=== PATIENT | female | born 1980 | race Hispanic/Latino ===

== ENCOUNTER 2019-07-21 01:24 | Observation (INO) ==
[2019-07-21] MEDS ORDERED: NS 1,000 ML IV ONE ×2 (01:42)
[2019-07-21] MEDS ORDERED: NS 250 ML IV ONE (01:42)
[2019-07-21] MEDS ORDERED: BENADRYL IV ONE (01:42)
[2019-07-21] MEDS ORDERED: ZOFRAN IV ONE ×2 (01:42→03:08)
[2019-07-21] MEDS ORDERED: REGLAN IV ONE (01:42)
[2019-07-21 02:11] LABS: BASO# 0.02 X1000 (0.0-0.2); BASO% 0.1 % (0.0-0.8); EOS# 0.18 X1000 (0.0-0.7); EOS% 1.1 % (0.0-10.0); HEMATOCRIT 38.9 % (37.0-47.0); HEMOGLOBIN 13.2 g/dL (12.0-16.0); IMM GRAN# 0.03 X1000 (0.0-0.04); IMM GRAN% 0.2 % (0.0-0.5); LYMPH# 0.94 X1000 (1.2-3.4); LYMPH% 5.8 % (20.5-51.1); MCH 29.4 PG (27-31); MCHC 33.9 g/dL (33-37); MCV 86.6 FL (81-99); MONO# 0.72 X1000 (0.11-0.59); MONO% 4.5 % (1.7-9.3); MPV 9.5 FL (7.4-10.4); NEUT# 14.25 X1000 (1.4-6.5); NEUT% 88.3 % (42.2-75.2); PLT 286 X1000 (130-400); RBC 4.49 XMIL (4.2-5.4); RDW 12.8 % (11.5-14.5); WBC 16.14 X1000 (4.8-10.8)
--- NOTE | 2019-07-21 02:18 | PROVIDER DOCUMENTATION ---
HPI-Abdominal Pain/GI Problem - General Chief Complaint: Abdominal Pain Stated Complaint: ABD/BACK PAIN Time Seen by Provider: 07/21/19 01:29 Source: patient, family (, who is Kong Fried, hospitalist here at bedside) Allergies/Adverse Reactions: Patient Allergies Allergy/AdvReac Type Severity Reaction Status Date / Time No Known Allergies Allergy Verified 07/21/19 01:43 Home Medications: Home Medication List Medication Instructions Recorded Confirmed Last Taken Type Levothyroxine [Synthroid] 100 microgm PO DAILY 07/21/19 07/21/19 Unknown History - History of Present Illness-ABD Nature of Presenting Problems: Acute onset of severe, sharp, stabbing epigastric pain radiating to back, with nausea intermittent since 2300 this evening. Has had similar episodes in the past, seen by Dr. Murray with negative MRCP after cholecystectomy. Told if symptoms returned, to come to ER for labs and CT scan or MRI. No diarrhea, vomiting, fever, chills. Patient has IUD, and occasionally has vaginal bleeding, doesn't think she can be . Only medicine takes routinely is thyroid medicine. Non-smoker, denies alcohol and drugs. Abdominal Pain Onset Location: reports: epigastric Pain Radiation: reports: back Quality of Pain: reports: sharp, stabbing Severity in ED: reports: severe Onset/Duration: reports: abrupt, 1-3 hours ago Timing: reports: still present, intermittent, changing over time (waxing and waning) Activities at Onset: reports: light activity Exposure to sick contacts?: No Modifying Factors: improves with: nothing Associated Symptoms: reports: back/neck pain, malaise, nausea, weakness Last BM: 24 hours ago Dark Stools Present?: reports: none noticed Rectal Bleeding: reports: none Rectal Pain: reports: none Emesis Description: reports: none Bruising or Bleeding Gums?: No Similar Symptoms Previously?: Yes (on occasion) Recently seen or treated by another doctor?: No Review of Systems - Adult - REVIEW OF SYSTEMS - ADULT Constitutional: reports: no symptoms reported Eyes: reports: no symptoms reported Ears, Nose, Mouth & Throat: reports: no symptoms reported Cardiovascular: reports: no symptoms reported Respiratory: reports: no symptoms reported Gastrointestinal: reports: no symptoms reported Genitourinary: reports: no symptoms reported Musculoskeletal: reports: no symptoms reported Integumentary: reports: no symptoms reported Neurological: reports: no symptoms reported Psychiatric: reports: no symptoms reported Endocrine: reports: no symptoms reported Hematologic/Lymphatic: reports: no symptoms reported Allergic/Immunologic: reports: no symptoms reported All Other Systems: Reviewed and Negative Past History - Adult - PAST MEDICAL HISTORY-ADULT Review of Records: reports: Old Records Reviewed, Nursing Assessment Review, Medications Reviewed, Social history reviewed & non-contributory. Major Childhood Illnesses: reports: denies history Cardiovascular: reports: denies history Respiratory: reports: denies history Gastrointestinal: reports: cholelithiasis Obstetrical/Gynecological: reports: ovarian cysts (PCOS) Genitourinary: reports: denies history Musculoskeletal: reports: denies history Neurological: reports: denies history Endocrine/Immune: reports: thyroid disorder Other Conditions: reports: denies history - PRIOR SURGERIES/PROCEDURES Surgical/Procedure History: reports: cholecystectomy - IMMUNIZATION STATUS Childhood Immunizations: UTD Flu Vaccine: UTD - FAMILY HISTORY Family History: reviewed, not pertinent - SOCIAL HISTORY Smoking: non-smoker Substance Use: none/never Alcohol Use Frequency: rarely Living Situation: family Physical Exam-General - PHYSICAL EXAM-ADULT Initial Vital Signs Reviewed: Yes (Tachycardic, tachypneic, hypotensive) - CONSTITUTIONAL General Appearance: alert, mild distress, other (ill appearing, pale) - EYES Eyes: PERRL/EOMI, pale conjunctivae. negative: pink conjunctivae - HEAD, EARS, NOSE, MOUTH & THROAT HENMT: normocephalic/atraumatic, pharynx normal, other (pale, dry mucosa). negative: moist mucous membranes, normal ENT inspection - NECK Neck: full range of motion, supple, normal inspection - RESPIRATORY Respiratory: chest non-tender, lungs clear, normal breath sounds, no pleuratic chest pain, no respiratory distress, no accessory muscle use - CARDIOVASCULAR Cardiovascular: normal peripheral pulses, regular rate, rhythm, no edema, no gallop, no JVD, no murmur, tachycardia - GASTROINTESTINAL (ABDOMEN) Abdominal Exam: non tender, soft, no organomegaly, abnormal bowel sounds (hyperactive) - LYMPHATIC Lymphatic: no adenopathy - MUSCULOSKELETAL Back Exam: normal inspection, no CVA tenderness, no vertebral tenderness. 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, grossly normal, no motor/sensory deficits - PSYCHIATRIC Psych/Mental Status: normal mood/affect, normal thought content, normal thought process, oriented x 3 Progress - PLAN OF CARE/RESULTS Progress/Plan/Lab Results: Vital Signs - 8 hr 07/21/19 01:30 Temperature 97.5 F L Pulse Rate 114 H Respiratory Rate 26 H Blood Pressure 85/55 O2 Sat by Pulse Oximetry 93 L Laboratory Results - last 24 hr 07/21/19 01:45 WBC 16.14 H RBC 4.49 Hgb 13.2 Hct 38.9 MCV 86.6 MCH 29.4 MCHC 33.9 RDW Std Deviation 12.8 Plt Count 286 MPV 9.5 Immature Gran % (Auto) 0.2 Neut % (Auto) 88.3 H Lymph % (Auto) 5.8 L [place] % (Auto) 4.5 Eos % (Auto) 1.1 Baso % (Auto) 0.1 Immature Gran # (Auto) 0.03 Neut # (Auto) 14.25 H Lymph # (Auto) 0.94 L [place] # (Auto) 0.72 H Eos # (Auto) 0.18 Baso # (Auto) 0.02 Orders Category Date Time Status Cardiac Monitoring DIRECTED Care 07/21/19 01:41 Active ED: Urine Bedside ORDERED Care 07/21/19 01:42 Active IV Insertion ORDERED Care 07/21/19 01:41 Active Nursing- Obtain EKG once Care 07/21/19 01:41 Active CHEST-1 VIEW [RAD] Stat Exams 07/21/19 01:[address] ABD/PELVIS W/IV CONT ONLY [CT] Stat Exams 07/21/19 01:42 Ordered AMYLASE [CHEM] Stat Lab 07/21/19 01:45 Received BLOOD CULTURE [BLDCUL] Stat Lab 07/21/19 01:45 Ordered CBC WITH DIFF [HEME] Stat Lab 07/21/19 01:45 Completed CK PROFILE [SP CHEM] Stat Lab 07/21/19 01:45 Received COMPREHENSIVE METABOLIC PANEL [CHEM] Stat Lab 07/21/19 01:45 Received LACTATE, PLASMA [CHEM] Lab 07/21/19 01:45 Uncollected LACTATE, PLASMA [CHEM] Lab 07/21/19 04:45 Uncollected LACTATE, PLASMA [CHEM] Lab 07/21/19 07:45 Uncollected LIPASE [CHEM] Stat Lab 07/21/19 01:45 Received MAGNESIUM [CHEM] Stat Lab 07/21/19 01:45 Received PROTIME WITH INR [COAG] Stat Lab 07/21/19 01:45 Received PTT [COAG] Stat Lab 07/21/19 01:45 Received T4 Stat Lab 07/21/19 01:44 Uncollected TROPONIN T HIGH SENSITIVITY Stat Lab 07/21/19 01:45 Received TSH Stat Lab 07/21/19 01:45 Received URINALYSIS W/POSS RFLX CULT [URINALYSIS] Stat Lab 07/21/19 01:41 Uncollected 0.9% Sodium Chloride Inj [Ns] 1,000 ml Med 07/21/19 01:42 Active IV 999 mls/hr 0.9% Sodium Chloride Inj [Ns] 1,000 ml Med 07/21/19 01:42 Active IV 999 mls/hr 0.9% Sodium Chloride Inj [Ns] 250 ml Med 07/21/19 01:42 Discontinued IV 999 mls/hr Diphenhydramine [Benadryl] Med 07/21/19 01:42 Discontinued 25 mg IV NOW ONE Metoclopramide [Reglan] Med 07/21/19 01:42 Discontinued 10 mg IV NOW ONE Ondansetron [Zofran] Med 07/21/19 01:42 Discontinued 4 mg IV NOW ONE Oxygen Device Stat Oth 07/21/19 01:41 Active EKG [EKG] Stat Ther 07/21/19 01:41 Ordered Result Diagrams: 07/21/19 01:45 07/21/19 01:45 - REASSESSMENT Reassessment #1 Time Reassessed: 03:27 Status: improving (Vitals normalized after IVF bolus. Given IV dilaudid/zofran/reglan and benadryl for pain, IV zosyn for possible GI cause of sepsis and po diflucan for yeast in urine.) - EKG 1 Time of EKG reading by physician:: 02:24 EKG Read and Signed by:: Emmanuel Lutz EKG Interpretation (*Must complete 3 of following elements*): Normal Rate: 79 Rhythm: NSR Raphine: normal QRS: normal TX Interval: normal ST Wave: normal - XRAY 1 XRAY Study: Chest Impression: Normal (Read by me at 0225) - CT/MRI 1 CT Study: Abdomen Impression: Abnormal (Per REAL RAD: Normal except for mild periportal edema.) - CONSULTS/PCP/HOSPITALIST Notification #1 *Consult/PCP/Hospitalist*: NITZA Jason for hospitalist Time Discussed: Consult Disposition: Admit Departure - Departure Date of Disposition Decision: 07/21/19 Time of Disposition Decision: : DIAGNOSIS: Epigastric abdominal pain of unknown etiology, UTI (urinary tract infection), uncomplicated, Candidiasis of genitalia in female Sepsis without acute organ dysfunction Qualifiers: Sepsis type: sepsis due to unspecified organism Qualified Code(s): A41.9 - Sepsis, unspecified organism Disposition: ADMITTED INPATIENT 09 Certified Medical Emergency: Emergent Condition: Fair Referrals and Follow-Ups: Rufus Peraza MD [Primary Care Provider] - - Critical Care Note This patient required my direct & personal management of CC.: No Attestation - Physician/ JOSE MIGUEL Attestation Patient care was provided by Advanced Practice Provider:: No The physician spent face to face time with patient:: Yes Advanced Practice Provider documentation review:: Supervising physician onsite and consulted in the evaluation and care of this patient. The physician did have a face to face encounter with the patient.
[2019-07-21 02:42] LABS: INR 1.01; PROTIME 13.4 Seconds (11.0-16.0)
[2019-07-21 02:53] LABS: URINE SOURCE CLEAN CATCH
[2019-07-21 02:56] LABS: BILIRUBIN URINE NEGATIVE (NEGATIVE); BLOOD URINE LARGE (NEGATIVE); COLOR YELLOW; GLUCOSE URINE NEGATIVE (NEGATIVE); KETONE URINE 100 mg/dL (NEGATIVE); LEUKOCYTES URINE SMALL (NEGATIVE); NITRITE URINE NEGATIVE (NEGATIVE); PROTEIN URINE 100 mg/dL (NEGATIVE); SP GRAVITY URINE 1.036; TURBIDITY URINE HAZY (CLEAR); UROBILINOGEN URINE NORMAL (NORMAL)
[2019-07-21 02:56] LABS: AGAP 16; ALB/GLOB RATIO 1.5; ALBUMIN 4.1 g/dL (3.5-5.0); ALKALINE PHOSPHATASE 75 U/L (32-104); AMYLASE 70 U/L (20-200); BUN 17 mg/dL (8-22); CALCIUM 8.9 mg/dL (8.8-10.2); CHLORIDE 101 mmol/L (98-107); CK PROFILE 61 U/L (24-173); COSMO 274; CREATININE 0.8 mg/dL (0.5-0.9); ESTIMATED GFR > 60; GLUCOSE 113 mg/dL (70-104); GOT 39 U/L (10-30); GPT 26 U/L (10-36); LIPASE 35 U/L (13-60); MAGNESIUM 1.6 mg/dL (1.5-2.7); POTASSIUM 3.4 mmol/L (3.5-5.1); SODIUM 136 mmol/L (136-145); TCO2 19 mmol/L (25-35); TOTAL BILIRUBIN 0.76 mg/dL (0.20-1.00); TOTAL PROTEIN 6.9 g/dL (6.3-8.3)
[2019-07-21 02:57] LABS: UR EPITHELIAL CELLS <10 /HPF (<10); URINE BACTERIA 1+ /HPF; URINE RBC 20-40 /HPF (<10); URINE WBC <10 /HPF (<10)
[2019-07-21 03:03] LABS: URINE CASTS NONE SEEN; URINE CRYSTALS NONE SEEN; URINE SMALL ROUND CELLS NONE SEEN; URINE YEAST PRESENT
[2019-07-21 03:03] LABS: PTT 23.8 Seconds (22.3-41.8)
[2019-07-21] MEDS ORDERED: DILAUDID IV ONE (03:08)
[2019-07-21] MEDS ORDERED: ZOSYN 4.5 GM in NS 100 ML IV ONE (03:09)
--- NOTE | 2019-07-21 03:23 | EKG Report ---
Test Performed on : 07/21/2019 02:12:23 AM Test Reason : hypotension Blood Pressure : / mmHG Vent. Rate : 079 BPM Atrial Rate : 079 BPM P-R Int : 172 ms QRS Dur : 096 ms QT Int : 402 ms P-R-T Axes : 052 047 027 degrees QTc Int : 460 ms Normal sinus rhythm. Normal ECG No previous ECGs available Unconfirmed Result
[2019-07-21] MEDS ORDERED: DIFLUCAN PO ONE (03:27)
[2019-07-21] MEDS ORDERED: TORADOL IV PRN (03:27)
[2019-07-21] MEDS ORDERED: POTASSIUM CHLORIDE 20 MEQ/SWI 20 MEQ/100 ML IVPB IV ONE (05:13)
[2019-07-21] MEDS ORDERED: NS 1,000 ML IV SCH ×2 (05:13→10:37)
[2019-07-21] MEDS ORDERED: TYLENOL PO PRN (05:13)
--- NOTE | 2019-07-21 06:31 | Diag Imaging Result Doc PS360 ---
CHEST-1 VIEW - 07/21/2019 INDICATION: epigastric pain, hypotension COMPARISON: None FINDINGS: The lungs are normally expanded and clear. Heart size and mediastinal contours are normal. No pneumothorax or pleural effusion. IMPRESSION: Negative exam. Electronically signed by Chaitanya Henry 07/21/2019 6:29 AM
[2019-07-21] MEDS ORDERED: SYNTHROID PO SCH (07:00)
--- NOTE | 2019-07-21 07:03 | HISTORY AND PHYSICAL ---
PRIMARY CARE PROVIDER: Dr. Lunsford in [place]. CHIEF COMPLAINT: Abdominal pain. HISTORY OF PRESENT ILLNESS: Ms. Christopher Jacobson is a 38-year-old female who presented to the ER early this morning, on 07/21/2019 at 0124 with complaints of abdominal pain. She is the spouse of Dr. Fried, a physician here for the hospitalist service. The patient and the patient's spouse state that at approximately 11 p.m. she did have abdominal pain that was in the epigastric area and radiated around to her back on both sides, right and left, up to her mid back in between her shoulder blades as well. She reports that when the pain onset, that it was very sharp and severe. It was constant, though the pain would become worse and then would back off some at times. At this time, she does state that the pain is gone. She has denied any nausea, vomiting, or diarrhea. Her last bowel movement was yesterday. She denies any fever, body aches, or chills. She has not had any headache, dizziness, chest pain, shortness of breath. She denies any dysuria or urinary frequency. Reports no pain or swelling in extremities. Upon evaluation in the ER, the patient has been afebrile though she was slightly tachycardic upon arrival, though this has improved. The patient was noted to have leukocytosis with a white blood cell count of 16,140. Potassium was slightly low at 3.4. Liver function tests show AST was slightly elevated at 39. Urinalysis did show large blood but she is currently on her menstrual. She does have some small leukocytes and 1+ bacteria though she is not reporting any urinary symptoms at this time. Given her abdominal pain and leukocytosis, they did perform a CT abdomen and pelvis with IV contrast which did show mild nonspecific periportal edema, though no other acute abnormalities were present. Given this, the patient will be admitted for further treatment and evaluation as well as a gastroenterology consult. REVIEW OF SYSTEMS: A 14 point review of systems was conducted with the patient and all were negative except for pertinent positives mentioned above in the HPI. PAST MEDICAL HISTORY: 1. Jose's thyroiditis. 2. Hypothyroidism. 3. Mitral valve. PAST SURGICAL HISTORY: 1. x2. 2. Laparoscopic cholecystectomy. 3. Surgery on her left index finger secondary to trauma. SOCIAL HISTORY: There is no known tobacco, alcohol or illicit drug use. ALLERGIES: Patient has no known allergies. HOME MEDICATIONS: Levothyroxine 100 mcg p.o. daily. FAMILY HISTORY: Positive for her mother having a parathyroid adenoma. There is also history of her maternal grandmother having history of renal cancer. DIAGNOSTIC DATA/LABORATORY RESULTS: White blood cell count 16,140, hemoglobin 13.2, hematocrit 38.9, platelet count is 286,000. PT 13.4, INR 1.01, PTT is 23.8. Sodium 136, potassium 3.4, chloride 101, serum bicarbonate is 19, BUN 17, creatinine 0.8 with a GFR greater than 60, glucose 113, calcium 8.9, magnesium 1.6, total bilirubin is 0.76, AST 39, ALT 26, alkaline phosphatase 75. CK 61. Troponin T high sensitivity is less than 6. Amylase 70, lipase 35. Urinalysis was obtained via clean catch and was positive for protein, ketones, large blood, small leukocyte and 1+ bacteria. EKG showed normal sinus rhythm at a rate of 79 with a QTc of 460. Chest x-ray showed no acute abnormalities. We are awaiting a radiologist's impression. CT of the abdomen and pelvis with IV contrast only did show nonspecific periportal edema. There was noted to be a cholecystectomy, though no biliary ductal dilation. There were no other acute abnormalities noted. Please see CT report for full detailed findings. PHYSICAL EXAMINATION: VITAL SIGNS: Temperature 97.5 degrees, heart rate is 72, respirations 17, blood pressure is 89/54 with a MAP of 65. Oxygen saturation is 95% on room air. GENERAL: Ms. Christopher Jacobson is a very pleasant 38-year-old female. She was resting in the ER stretcher. She was in no acute distress. She was awake, alert, and able to answer questions appropriately. HEENT: Head is atraumatic, normocephalic. Pupils are equal, round, reactive to light, were 3 mm bilaterally and brisk. Oral mucosa was moist. Oropharynx is clear. NECK: Supple. Trachea midline. CARDIOVASCULAR: Patient has S1-S2 present. No murmurs, gallops, rubs appreciated with a regular rate and rhythm. PULMONARY: Patient has symmetrical chest expansion bilaterally. Lung sounds are clear to auscultation in bilateral full bauer. ABDOMEN: Soft, nondistended, though she did have abdominal tenderness noted in the epigastric area. Bowel sounds were present in all 4 quadrants, were slightly hyperactive. EXTREMITIES: No cyanosis or edema noted. Pulse, motor and sensory were intact in all extremities. Radial and pedal pulses were 2+ bilaterally. INTEGUMENTARY: The patient's skin is pink, warm, and dry. NEUROLOGICAL: Patient is alert and oriented to person, place, and time. She was able to move all extremities. There were no focal neurological deficits noted. ASSESSMENT AND PLAN: 1. Nonspecific periportal edema. 2. Abdominal pain. 3. Leukocytosis. 4. Asymptomatic bacteriuria. 5. Mild hypokalemia. Further evaluation of the patient's periportal edema, her abdominal pain and leukocytosis, we have obtained blood cultures as well as a urine culture. She is not reporting any urinary symptoms at this time. We will await urine culture results and continue to follow. She has been placed on antibiotic of Zosyn 3.375 g IV q.6 hours. She will be NPO except for ice chips. We will provide p.r.n. antiemetic of Zofran and Toradol for pain. We have placed a consult with Dr. Peraza with Gastroenterology. We will await his evaluation and further recommendations for management. We will go ahead and replace her potassium with 20 mEq of IV potassium. We will place SCDs for venous thromboembolism (VTE) prophylaxis. She was placed on the surgical floor with telemetry. She will have vital signs q.4 hours. Further orders and recommendations pending hospital course, diagnostic studies, and physician evaluation. Dictated by NITZA Church for Ilya Hua MD cc: Ilya Hua MD
--- NOTE | 2019-07-21 07:34 | Diag Imaging Result Doc PS360 ---
EXAM: CT ABD/PELVIS W/IV CONT ONLY HISTORY: epigastric pain TECHNIQUE: CT abdomen and pelvis with intravenous contrast. COMPARISON: None. FINDINGS: The gallbladder has been removed. There is mild periportal edema. The common bile duct measures 7 mm. Normal spleen, pancreas, adrenal glands, and kidneys. No hydronephrosis. Normal aorta. There are small para-aortic and mesenteric nodes. Normal appendix. No abscess. No bowel obstruction. However, there is stool throughout the colon, particularly in the sigmoid colon and rectum. There is an intrauterine device which appears to be in good position. The ovaries are normal with small cysts. Tiny fat filled umbilical hernia. IMPRESSION: 1.Cholecystectomy. Mild periportal edema. 2.Prominent constipation 3.Tiny umbilical hernia filled with fat. 4.A preliminary report was given at 3:11 AM This exam was performed using automated exposure control, adjustment of mA or kV according to patient size, and/or use of iterative reconstruction technique. Electronically signed by Khoi Payne 07/21/2019 7:32 AM
[2019-07-21] MEDS ORDERED: ZOFRAN IV PRN (08:00)
[2019-07-21] MEDS ORDERED: ZOSYN 3.375 GM in NS 50 ML IV SCH (09:15)
[2019-07-21] MEDS ORDERED: DIPRIVAN 1% ONE (11:46)
[2019-07-21] MEDS ORDERED: XYLOCAINE-MPF 2% ONE (11:46)
--- NOTE | 2019-07-21 12:28 | ENDOSCOPY OPERATIVE NOTE ---
[facility] ENDOSCOPY OPERATIVE NOTE , EGD PROCEDURE REPORT PATIENT: Radha Vu ADMISSION DATE: 07/21/2019 MR#: [id number] : 1980 PROCEDURE DATE: 07/21/2019 SURGEON: Rufus Peraza MD STATUS: inpatient RN PRIMARY CARE: Kellee Cleveland PREOPERATIVE DIAGNOSIS: The patient is a 38 yr old female here for an EGD due to epigastric abdomina l pain and dyspepsia. PROCEDURE PERFORMED: EGD w/ biopsy MEDICATIONS: Per Anesthesia TOPICAL ANESTHETIC: none CONSENT: The patient understands the risks and benefits of the procedure and understands that these r isks include, but are not limited to: sedation, allergic reaction, infection, perforation and/or bleeding. Alternative means of evaluation and treatment include, among others: physical exam, x-rays, and/or surgical intervention. The patient elects to proceed with this endoscopic procedure. HISORY AND PHYSICAL: 07/21/2019 DESCRIPTION OF PROCEDURE: During intra-op preparation period all mechanical and medical equipment was checked for proper function. Hand hygiene and appropriate measures for infection prevention was taken. After the risks, benefits and alternatives of the procedure were thoroughly explained, Informed consent was verified, confirmed and timeout was successfully executed by the treatment team. The patient was anesthetized with topical anesthesia and the Pentax [id number] endoscope was introduced through the mouth and advanced to the second portion of the duodenu m. Retroflexion was performed in the stomach and revealed no abnormalities. The gastroscope was then slowly withdraw n and removed. ESOPHAGUS: Mild reflux esophagitis was found 40 cm from the incisors. Esophagitis was LA Class A: On e or more mucosal breaks < 5 mm in maximal length. The esophagus was otherwise normal. STOMACH: The mucosa of the stomach appeared normal. Multiple biopsies were performed using cold forc eps. Sample sent for histology. DUODENUM: The duodenal mucosa showed no abnormalities. SPECIMENS REMOVED: No ADVERSE EVENTS: There were no complications. POSTOPERATIVE DIAGNOSIS: 1. Reflux esophagitis 40 cm from the incisors 2. The esophagus was otherwise normal 3. The mucosa of the stomach appeared normal; multiple biopsies were performed 4. The duodenal mucosa showed no abnormalities cold forceps biopsies were taken in the bulb and seco nd portion RECOMMENDATIONS: 1. Omeprazole (Prilosec) 40mg PO daily 2. Avoid non-steroid anti-inflammatory drugs 3. Follow-up biopsy results in 2 weeks 4. Transfer to floor 5. Follow up with referring physician 6. Follow up with GI Doctor in 2 months REPEAT EXAM: Rufus Peraza MD eSigned: Rufus Peraza MD 07/21/2019 12:27 PM cc: Kong Fried MD PATIENT NAME: Christopher Jacobson Radha C MR#: [id number]
--- NOTE | 2019-07-21 15:14 | Diag Imaging Result Doc PS360 ---
EXAM: MRI MRCP (ABD W/O CONTRAST) 07/21/2019 HISTORY: periportal inflamation TECHNIQUE: Axial T2, water 3-D, in and out of phase 3-D, radial T2, 3-D coronal MRCP with MIPS. COMMENT: There is no apparent pancreatic ductal dilatation. The distal common bile duct measures less than 7 mm. There are no hepatic signal abnormalities. There has been cholecystectomy. There are no apparent filling defects in the common hepatic or common bile ducts. IMPRESSION: No evidence of ductal dilatation or obstruction. The findings demonstrated on the recent CT are nonspecific but could be related to hepatitis. Electronically signed by Serge Sierra 07/21/2019 3:12 PM
[2019-07-21 15:28] VITALS: BP 115/72
--- NOTE | 2019-07-21 17:04 | GASTROENTEROLOGY CONSULTATION ---
DATE: 07/21/2019 REASON FOR CONSULTATION: Abdominal pain. HISTORY OF PRESENT ILLNESS: This is a 38-year-old female who came into the emergency room in the middle of the night. She reports onset of severe abdominal pain in the epigastric area around 11 p.m. last night. It radiates to the sides and to her back between her shoulder blades. The pain is an abrupt onset, is sharp and severe. It cane and went at times but lasted several hours to were she came into the emergency room for evaluation. She reports having this episode of pain on 2 other occasions probably over a year ago or more. She has had workup by Dr. Peraza that included a colonoscopy in 2019 that was normal due to rectal bleeding. She also had an EGD in 2018 that showed gastritis. Patient took some ibuprofen and [place] at the onset of her pain last night. She rarely uses NSAIDs though. She did report eating some sugar free chocolates yesterday afternoon but is not sure if that has any relation with her onset of symptoms. She had denied constipation or diarrhea recently. She does have history of constipation. She is denying nausea or vomiting. On evaluation, she had findings of leukocytosis she had small leukocytes and 1+ bacteria noted on urinary testing, but she has denied any urinary symptoms. A CT scan was performed that showed that showed no acute process but was showing mild nonspecific periportal edema. PAST MEDICAL HISTORY: Jose thyroiditis, hypothyroidism. PAST SURGICAL HISTORY: section x2. Laparoscopic cholecystectomy in 2011. Has had index finger surgery on left hand. ALLERGIES: No known drug allergies. HOME MEDICATIONS: Levothyroxine 100 mcg daily. SOCIAL HISTORY: She denies tobacco or alcohol use. She has 3 children. She is . Her is a physician here with the hospitalist service. 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 She is from [facility]. FAMILY HISTORY: Positive mother with parathyroid adenoma. History of maternal grandmother with renal cancer. REVIEW OF SYSTEMS: Per history of present illness. PHYSICAL EXAMINATION: Vital Signs: Temperature 98 degrees pulse 61, respirations 20, blood pressure 96/49. GENERAL: Patient is awake and alert and currently in no acute distress. The pain she was having has currently resolved. She denies nausea or vomiting.HEENT: Normocephalic, atraumatic. Pupils equal, round, reactive to light. Sclerae nonicteric. Respiratory: Lung sounds essentially clear. Cardiovascular: Regular rate and rhythm. Abdomen: Soft, nontender at present time. Nondistended. Positive bowel sounds. Extremities: No lower extremity edema noted. Neurological: Cranial nerves 2-12 grossly intact. DIAGNOSTIC RESULTS: Laboratory: Hematology: WBC 16.14 hemoglobin 13.2, hematocrit 38.9. MCV 86.6, platelets 286,000. Coagulation: ProTime 13.4, INR 1.01. PTT 23.8. Chemistry: Sodium 136, potassium 3.4, chloride 101, CO2 19 BUN 17 creatinine 0.8, glucose 113 calcium 8.9, magnesium 1.6. Total bilirubin 0.76, AST 39, ALT 26, alkaline phosphatase 79, amylase 70, lipase 35. TSH 1.35, T4 8.16. Urinalysis showed large amount of blood but patient is on her menstrual cycle. Small leukocytes, 1+ bacteria. IMAGING: Abdominal CT scan showed history of cholecystectomy and mild periportal edema. Prominent constipation. Tiny umbilical hernia filled with fat. Chest x-ray was negative. ASSESSMENT AND PLAN: 1. Acute abdominal pain lasting several hours. Now resolved. 2. Gas and belching. 3. Leukocytosis. 4. CT scan showing periportal edema. Patient has had a cholecystectomy in 2011. PLAN: Continue symptomatic treatment and supportive care. She has been started on antibiotic. Patient had EGD in 2018 that showed gastritis. Colonoscopy in 2019 was normal. Will proceed with repeat EGD for further evaluation. If this is negative, would recommend an MRCP for further evaluation. I have discussed this plan with the patient and she wishes to proceed with EGD procedure. Further plans to be made according to findings. I have discussed this case with Dr. Peraza. Dictated by NITZA Flowers for Rufus Peraza MD cc: NITZA Irene MD
--- NOTE | 2019-07-22 21:59 | DISCHARGE SUMMARY ---
ADMISSION DATE: 07/21/2019 DISCHARGE DATE: 07/21/2019 DISPOSITION: Home. FOLLOWUP: 1. Ms. Radha Lunsford. 2. Dr. Peraza. CONSULTATION DURING THIS ADMISSION: GI was consulted patient was seen by Dr. Peraza. INVASIVE PROCEDURES DONE DURING THIS ADMISSION: EGD did show mild reflux esophagitis. IMAGING STUDIES OF SIGNIFICANCE: 1. A chest x-ray was negative. 2. A CT scan of the abdomen and pelvis did show cholecystectomy, mild periportal edema. Prominent constipation. Tiny umbilical hernia filled with fat. 3. An MRCP showed no evidence of ductal dilation or obstruction. Findings demonstrated on a recent CT scan could be related to hepatitis. ADMISSION DIAGNOSES: 1. Nonspecific periportal edema. 2. Abdominal pain. 3. Leukocytosis. DIAGNOSES AT THE TIME OF DISCHARGE: 1. Recurrent epigastric pain of unclear etiology. 2. Nonspecific periportal edema. 3. Reactive leukocytosis. 4. Constipation. 5. History of hypothyroidism. DISCHARGE MEDICATIONS: 1. Carafate 1 g, 4 times per day. 2. Lactobacillus. 3. MiraLAX. 4. Colace 1 tablet b.i.d. 5. Pantoprazole 40 mg p.o. daily. 6. Levothyroxine 100 mcg p.o. daily. PRESENTING COMPLAINT: Abdominal pain. HISTORY OF PRESENTING COMPLAINT: Ms. Christopher Jacobson is a 38-year-old female with a history of Jose thyroiditis, hypothyroidism, came to the emergency room because of acute onset of epigastric pain. The patient has had this pain in the past associated with elevation in her liver enzymes. She normally follows up with Dr. Peraza. Upon presentation, she was evaluated was found to have a mild periportal edema on a CAT scan. She was subsequently admitted to the medical floor for further evaluation. HOSPITAL COURSE: Ms. Christopher Jacobson was evaluated by the hospital Services. GI was consulted. She was evaluated by Dr. Peraza. A decision was made for EGD which was done. The only thing positive was a reflex esophagitis. An MRCP was also done, which was negative. She did feel a lot better during the hospital course. The pain actually subsided. We are not 100% sure the cause of that acute pain but it is resolved and she is going to be discharged to follow up with Dr. Peraza on an outpatient basis. Serologies have been done, including HUGH, hepatitis serologies, and thrombophilic workup were all done, which the patient will review that with Dr. Peraza, as well as with her primary care physician. At the time of the discharge, Ms. Christopher Jacobson is referred to be doing well. She has tolerated her meals. We think she is fairly stable to be discharged. Ms. Christopher Jacobson was also found to be remarkably constipated. She has been advised on a bowel regimen and adequate enteral hydration. Because she was found to have reflux esophagitis on EGD, anti-reflux precautions have been advised. All the discharge instructions have been discussed with Ms. Christopher Jacobson. She voiced understanding. TIME SPENT FOR DISCHARGE: 32 minutes. I have also discussed the discharge plans with her cabin service agent, as well as her , who is also a hospitalist in this facility in this institution. cc: Hong Phillips MD
[2019-07-23 11:18] LABS: HEPATITIS PROFILE ACUTE SEE COMMENTS
== END 2019-07-21 18:12 | disposition home or self-care (01) ==
LOC: ED 01:24 → SUATTDRO 01:25 → INTOOBSV 01:25 → 4N 04:25
PROVIDERS: ATTEND Internal Medicine